=== PATIENT | male | born 1980 | race American Indian/Alaskan Native ===

== ENCOUNTER 2022-04-23 06:15 | Day surgery (SDC) | payer OTHER ==
[~2022-04-23] VITALS: Ht 185.4 cm; Wt 90.9 kg
[~2022-04-23 06:15] MED LIST: DICLOFENAC SODI75 MG PO; HYDROCODON-ACE1 EA11 PO
--- NOTE | 2022-04-23 08:09 | NUR ---
04/23/22 0809 Minda Kumar 0805: PT ARRIVES TO PACU NON AROUSAL WITH OPA IN PLACE, JAW THRUST PERFORMED. PT ON 10L 02 VIA MASK, SATS 100%. VERBAL REPORT FROM TIMA MONACO. REYNA, RN AT BEDSIDE SECOND.
--- NOTE | 2022-04-27 07:25 | OR ---
[facility] [address] [place], [place] [address] Signed DATE OF OPERATION: 04/23/2022 SURGEON: Roque Stark MD PREOPERATIVE DIAGNOSIS: Medial right subcutaneous scapular mass. POSTOPERATIVE DIAGNOSIS: Lipoma (3.75 cm). PROCEDURE: Excision of subcutaneous mass. ESTIMATED BLOOD LOSS: None. 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 He noticed a painful lump on the medial side of his right scapula. It is in between the medial edge of the scapula and the spine. He said his kids could also see and feel it as well. He went to his primary care provider. He has what appears to be a lipoma. It is about 4 cm in diameter. He was asked to see me and have it removed as it is causing him daily pain at work and at home. In the office, I explained to Dennis the nature of the surgery. He understands there is risk including, but not limited to bleeding, infection, scarring, change in contour of the skin as well as possible need for additional surgeries based on pathology results. He also understands that lipomas have a propensity to recur. He had expressed understanding and wished to proceed. DESCRIPTION OF PROCEDURE: I met with Dennis in our preop area. We could both easily identify the lesion and marked it appropriately. After this, Dennis was taken into the operating room and placed in the left lateral decubitus position with appropriate padding and monitoring. He was under general LMA anesthesia. He was given preoperative antibiotics along with subcutaneous heparin. SCDs were utilized. He was then prepped and draped in the usual sterile fashion. A transverse incision was made over the lesion and carried down and around the lesion bluntly and with the cautery. It has the classic appearance of a lipoma. It measured 3.75 cm in diameter. We injected local anesthetic into the operative field. The wound was irrigated and suctioned out until clear. The dermis was reapproximated with interrupted 3-0 subcuticular Monocryl sutures. The skin edges were reapproximated with a running 5-0 fast absorbing plain gut suture. Dry gauze and tape were applied. Electronically Signed By: ROQUE STARK MD 04/27/22 0725 PATIENT NAME: DENNIS HERNANDES OPERATIVE REPORT DATE OF : 84 REPORT #: [id number] PHYSICIAN: ROQUE STARK MD PCP: [facility] REPORT IS CONFIDENTIAL AND NOT TO BE RELEASED WITHOUT AUTHORIZATION [address] [address] Signed Dennis was then rotated into the supine position, weaned from his anesthesia, extubated in the OR, and taken into recovery room in stable condition. MD ESTHELA Samayoa/DAWNAL /[id number] cc: Roque Stark MD [facility] Copies: ROQUE STARK MD ~ Electronically Signed By: ROQUE STARK MD 04/27/22 0725 PATIENT NAME: DENNIS HERNANDES ERICK OPERATIVE REPORT DATE OF : 84 REPORT #: [id number] PHYSICIAN: ROQUE STARK MD PCP: [facility] REPORT IS CONFIDENTIAL AND NOT TO BE RELEASED WITHOUT AUTHORIZATION
--- NOTE | 2022-04-27 09:53 | PATH ---
[facility] [address] [facility] [place], [place] [address] Signed SPECIMEN(S): A RIGHT SCAPULAR SPECIMEN SOURCE: A. RIGHT SCAPULAR CLINICAL HISTORY: Excise right scapular lipoma. FINAL PATHOLOGIC DIAGNOSIS: Lipoma, right scapula: - Lipoma. TWK:caw:C2NR MICROSCOPIC EXAMINATION: The specimen consists of benign adipose tissue consistent with a lipoma. Atypical features are not seen. GROSS DESCRIPTION: The specimen, labeled "NENO," and designated on the requisition "right scapular lipoma," is received in formalin and consists of a circumscribed adipose tissue nodule, measuring 4.1 x 3.9 x 1.3 cm. The cut surface is homogenous. Garment [employer]er sections are submitted in cassette (A1). AT (under the direct supervision of a pathologist) The Gross Description was prepared using a voice recognition system. The report was reviewed for accuracy; however, sound-alike word errors, addition and/or deletions may occur. If there is any question about this report, please contact Client Services. PERFORMING LABORATORY: The technical component was performed by [facility], [address] [place] [id number] (CLIA# [id number]). The professional interpretation was performed by [facility], [facility], [address] [place] [id number] (CLIA#: [id number]). Diagnostician: Ramón Yi MD Pathologist Electronically Signed 04/27/2022 PATIENT NAME: GRICELDA HERNANDES PATHOLOGY DATE OF : 84 REPORT #: [id number] PHYSICIAN: [facility] PCP: [facility] REPORT IS CONFIDENTIAL AND NOT TO BE RELEASED WITHOUT AUTHORIZATION [address] [address] Signed Copies: ~ PATIENT NAME: GRICELDA HERNANDES PATHOLOGY DATE OF : 84 REPORT #: [id number] PHYSICIAN: [facility] PCP: [facility] REPORT IS CONFIDENTIAL AND NOT TO BE RELEASED WITHOUT AUTHORIZATION
== END 2022-04-23 09:45 | disposition home or self-care (01) ==
LOC: DS 06:15
PROVIDERS: ATTEND Colon & Rectal Surgery
PROC: 0JB70ZZ Excision of Back Subcutaneous Tissue and Fascia, Open Approach (ICD-10-PCS; principal; 2022-04-23 06:45)
DX: D17.1 Benign lipomatous neoplasm of skin and subcutaneous tissue of trunk (principal)
CPT/HCPCS: J0690; J1100; J1644; J1885; J2250; J2405; J2704; J2765; J3010; J7121